=== PATIENT | female | born 1950 | race Caucasian/White ===

== ENCOUNTER 2019-07-01 08:17 | Emergency (ER) | payer MEDICARE, OTHER ==
[~2019-07-01] VITALS: Ht 167.6 cm; Wt 73.3 kg
[~2019-07-01 08:17] MED LIST: ENAL20TA PO; GLIP5TAB10 PO; METF10002 PO
[2019-07-01 08:18] VITALS: BP 167/94
== END 2019-07-01 09:21 ==
LOC: ED 09:00
DX: H60.12 Cellulitis of left external ear (principal); R05 Cough; R09.81 Nasal congestion; H93.8X9 Other specified disorders of ear, unspecified ear
CPT/HCPCS: 71046; 99283

== ENCOUNTER 2019-08-03 08:32 | Emergency (ER) | payer MEDICARE, OTHER ==
[~2019-08-03] VITALS: Ht 167.6 cm; Wt 71.0 kg
[2019-08-03 08:34] VITALS: BP 144/57
[2019-08-03] MEDS ORDERED: KETOROLAC 30 MG/1 ML ONE (08:56)
[2019-08-03] MEDS ORDERED: KETOROLAC 30 MG/1 ML IM ONE (09:00)
== END 2019-08-03 09:37 | disposition home or self-care (01) ==
LOC: ED 09:25
DX: S43.401A Unspecified sprain of right shoulder joint, initial encounter (principal); I10 Essential (primary) hypertension; Z90.710 Acquired absence of both cervix and uterus; Z88.0 Allergy status to penicillin; X58.XXXA Exposure to other specified factors, initial encounter; Y93.89 Activity, other specified; Y92.89 Other specified places as the place of occurrence of the external cause; Y99.8 Other external cause status
CPT/HCPCS: 73030; 96372; 99283; J1885

== ENCOUNTER 2019-08-21 11:34 | Emergency (ER) | payer MEDICARE, OTHER ==
[~2019-08-21] VITALS: Ht 167.6 cm; Wt 69.6 kg
[2019-08-21 11:41] VITALS: BP 154/84
== END 2019-08-21 13:40 | disposition home or self-care (01) ==
LOC: ED 13:20
DX: S62.347A Nondisplaced fracture of base of fifth metacarpal bone, left hand, initial encounter for closed fracture (principal); W18.30XA Fall on same level, unspecified, initial encounter; Y93.89 Activity, other specified; Y92.410 Unspecified street and highway as the place of occurrence of the external cause; Y99.8 Other external cause status
CPT/HCPCS: 29125; 99283

== ENCOUNTER → 2019-09-11 | Outpatient (CLI) | payer MEDICARE ==
[2019-09-11 15:20] LABS: ALANINE AMINOTRANSFERASE 20 U/L (12-78); ALBUMIN 3.9 g/dL (3.4-5.0); ANION GAP 5 mmol/L (5-15); CALCIUM 9.2 mg/dL (8.5-10.1); CHLORIDE 106 mmol/L (98-107); CREATININE 0.81 mg/dL (0.55-1.02)
[2019-09-11 15:23] LABS: ALKALINE PHOSPHATASE 75 U/L (45-117); BILIRUBIN,TOTAL 0.2 mg/dL (0.2-1.0)
== END | disposition home or self-care (01) ==
LOC: STAR 13:54
PROVIDERS: ATTEND Obstetrics & Gynecology Female Pelvic Medicine and Reconstructive Surgery
DX: Z01.818 Encounter for other preprocedural examination (principal); R10.2 Pelvic and perineal pain; N39.3 Stress incontinence (female) (male); N81.10 Cystocele, unspecified; N81.6 Rectocele
CPT/HCPCS: 36415; 80053; 93005

== ENCOUNTER 2019-09-22 05:24 | Day surgery (SDC) | payer MEDICARE, OTHER ==
[~2019-09-22] VITALS: Ht 167.6 cm; Wt 70.1 kg
[2019-09-22] MEDS ORDERED: LACTATED RINGERS 1,000 ML IV SCH (06:09)
[2019-09-22] MEDS ORDERED: ASPI-496 PO (06:11)
[2019-09-22] MEDS ORDERED: CALCIUM PO (06:11)
[2019-09-22 06:19] VITALS: BP 168/96
[2019-09-22] MEDS ORDERED: LIDOCAINE-MPF 1%, 2ML INFIL ONE (06:30)
[2019-09-22] MEDS ORDERED: BUPIVACAINE/PF 0.25% ONE (06:37)
[2019-09-22] MEDS ORDERED: EPINEPHRINE 1 MG/ML, 1ML ONE (06:37)
[2019-09-22] MEDS ORDERED: NEOMY/POLYMYXIN B GU IRR. 1 ML ONE (06:37)
[2019-09-22] MEDS ORDERED: MIDAZOLAM 1 MG/ML, 2ML ONE (07:26)
[2019-09-22] MEDS ORDERED: FENTANYL PF 250 MCG/5ML ONE (07:26)
[2019-09-22] MEDS ORDERED: MEPERIDINE/PF 25MG/ML,1ML IVPush PRN (07:30)
[2019-09-22] MEDS ORDERED: SCOPOLAMINE 1MG PATCH TD SCH (07:30)
[2019-09-22] MEDS ORDERED: HALOPERIDOL 5 MG/ML IV PRN (07:30)
[2019-09-22] MEDS ORDERED: HYDROmorphone 2 MG/ML, 1ML IVPush PRN (07:30)
[2019-09-22] MEDS ORDERED: FENTANYL PF 100 MCG/2ML IV PRN (07:30)
[2019-09-22] MEDS ORDERED: GABAPENTIN 300 MG CAPSULE PO ONE (07:30)
[2019-09-22] MEDS ORDERED: hydrALAzine 20 MG/ML, 1ML IV PRN (07:30)
[2019-09-22] MEDS ORDERED: LABETALOL 5MG/ML, 20ML IV PRN (07:30)
[2019-09-22] MEDS ORDERED: PROMETHAZINE 25 MG/ML, 1ML IV PRN (07:30)
[2019-09-22] MEDS ORDERED: OXYcodone 5 MG/5 ML ORAL.SOL UDC PO PRN (07:30)
[2019-09-22] MEDS ORDERED: ACETAMINOPHEN 500 MG TABLET PO ONE (07:30)
[2019-09-22] MEDS ORDERED: PROPOFOL 10 MG/ML, 20ML ONE (08:22)
[2019-09-22] MEDS ORDERED: ONDANSETRON 2MG/ML, 2ML ONE (08:22)
[2019-09-22] MEDS ORDERED: DEXAMETHASONE 4 MG/ML, 1ML ONE (08:22)
[2019-09-22] MEDS ORDERED: CEFAZOLIN 1,000 MG ONE (08:22)
== END 2019-09-22 12:40 | disposition home or self-care (01) ==
LOC: OUT 05:24
PROVIDERS: ATTEND Obstetrics & Gynecology Female Pelvic Medicine and Reconstructive Surgery
DX: N81.89 Other female genital prolapse (principal); N39.46 Mixed incontinence; R10.2 Pelvic and perineal pain; N81.11 Cystocele, midline; N81.6 Rectocele; N81.5 Vaginal enterocele; I10 Essential (primary) hypertension; E11.9 Type 2 diabetes mellitus without complications; G43.909 Migraine, unspecified, not intractable, without status migrainosus; Z79.84 Long term (current) use of oral hypoglycemic drugs; Z88.0 Allergy status to penicillin; Z90.710 Acquired absence of both cervix and uterus; Z90.722 Acquired absence of ovaries, bilateral; Z90.79 Acquired absence of other genital organ(s); Z98.890 Other specified postprocedural states
CPT/HCPCS: 57265; 57282; 57288; 82962; C1771; J0171; J0690; J1100; J2250; J2405; J2704; J3010; J3490; J7120